=== PATIENT | male | born 1950 | race African-American/Black ===

== ENCOUNTER 2017-12-22 01:53 | Emergency (ER) | payer MEDICARE, MEDICAID ==
[~2017-12-22] VITALS: Ht 185.4 cm; Wt 83.9 kg
--- NOTE | 2017-12-22 01:53 | NUR ---
PT RECEIVED FROM [facility] FROM [facility] C/O "STAFF AT [facility] STARTED CPR D/T ALTERED/ HYPOTENSIVE". PT ARRIVED ON BIPAP W/ IO ON RLE 25G. AT BEDSIDE FOR ORDERS Addendum: 12/22/17 at 0344 by JIA CPAP NOT BIPAP
[2017-12-22] MEDS ORDERED: ROCURONIUM BROMIDE 50 MG/5 ML IV ONE ×2 (01:58)
[2017-12-22] MEDS ORDERED: CALCIUM CHLORIDE 1,000 MG/10 ML DISP.SYRIN IV ONE (01:58)
[2017-12-22] MEDS ORDERED: ETOMIDATE 2 MG/ML VIAL IV ONE (01:58)
[2017-12-22] MEDS ORDERED: EPINEPHRINE (1:10,000) SYRINGE 1 MG/10 ML DISP.SYRIN IVP ONE (01:58)
[2017-12-22] MEDS ORDERED: SODIUM BICARBONATE SYR 50 MEQ/50 ML DISP.SYRIN IV ONE (01:58)
[2017-12-22] MEDS: ETOMIDATE 2 MG/ML VIAL IV ONE (02:00)
[2017-12-22] MEDS: ROCURONIUM BROMIDE 50 MG/5 ML IV ONE (02:00)
--- NOTE | 2017-12-22 02:02 | NUR ---
PT INTUBATED PER DR LESTER, RT AT BEDSIDE ET TUBE 7.5 23 CM AT THE LIP
--- NOTE | 2017-12-22 02:04 | NUR ---
RT Pt orally intubated w/ 7.5ETT@23cm at the lip w/ bilateral bs,co2 color change, and fogging in ETT. Placed on [facility] vent settings per Dr Weller. Addendum: 12/22/17 at 0328 by FARHAN KANG RT Amended: Links added.
--- NOTE | 2017-12-22 02:05 | NUR ---
VENT SETTINGS: AC 16 VT 550 FI02 100% PEEP 0
[2017-12-22] MEDS ORDERED: PROPOFOL 100 ML ONE (02:06)
[2017-12-22 02:07] VITALS: BP 80/50
--- NOTE | 2017-12-22 02:18 | NUR ---
DR. LESTER AT BEDSIDE FOR CENTRAL LINE PLACEMENT.
--- NOTE | 2017-12-22 02:23 | NUR ---
Christianne mccloud in [facility] - 12/22/17 at 0242 by JIA STARTING CENTRAL LINE
--- NOTE | 2017-12-22 02:23 | NUR ---
CPR STARTED ON PT
--- NOTE | 2017-12-22 02:24 | NUR ---
EPI 1MG IVP 0224
--- NOTE | 2017-12-22 02:26 | NUR ---
RT AT BEDSIDE
--- NOTE | 2017-12-22 02:26 | NUR ---
ASYSTOLE. CONTINUED CPR
--- NOTE | 2017-12-22 02:27 | NUR ---
EPI 1MG GIVEN IVP LLE IO 15G
--- NOTE | 2017-12-22 02:28 | NUR ---
BS 147
[2017-12-22 02:29] LABS: BASOPHILS # (AUTO) 0.1 /CMM (0.0-0.2); BASOPHILS % (AUTO) 1.1 % (0.0-2.0); EOSINOPHILS # (AUTO) 0.1 /CMM (0.0-0.7); EOSINOPHILS % (AUTO) 1.2 % (0.0-6.0); HEMATOCRIT 35 % (39-51); HEMOGLOBIN 10.8 g/dL (13.5-17.5); LYMPHOCYTES # (AUTO) 5.9 /CMM (0.8-4.8); LYMPHOCYTES % (AUTO) 52.2 % (20.0-44.0); MEAN CORPUSCULAR HEMOGLOBIN 26 PG (26.0-33.0); MEAN CORPUSCULAR HGB CONC 31 g/dl (31.0-36.0); MEAN CORPUSCULAR VOLUME 86 fL (80-96); MONOCYTES # (AUTO) 0.7 /CMM (0.1-1.30); MONOCYTES % (AUTO) 6.6 % (2.0-12.0); NEUTROPHILS # (AUTO) 4.4 /CMM (1.8-8.9); NEUTROPHILS % (AUTO) 38.9 % (43.0-81.0); PLATELET COUNT (AUTO) 248 /CMM (150-450); RDW COEFFICIENT OF VARIATION 15.8 (11.5-15.0); RED BLOOD CELL COUNT(AUTO) 4.09 MIL/uL (4.5-6.0); WHITE BLOOD COUNT (AUTO) 11.3 K/uL (4.3-11.0)
--- NOTE | 2017-12-22 02:29 | NUR ---
NA HCO3 IVP LLE IO 15G
--- NOTE | 2017-12-22 02:32 | NUR ---
PULSE CHECK. ASYSTOLE SO CPR RESUMED
--- NOTE | 2017-12-22 02:34 | NUR ---
ASYSTOLE. CPR CONTINUED
--- NOTE | 2017-12-22 02:35 | NUR ---
CALCIUM CHLORIDE IVP LLE IO 15G
--- NOTE | 2017-12-22 02:36 | NUR ---
CPR CONTINUED AFTER PULSE CHECK
--- NOTE | 2017-12-22 02:38 | NUR ---
ASYSTOLE, CPR CONTINUED
[2017-12-22] MEDS ORDERED: EPINEPHRINE (1:1000) 1 MG/ML AMPUL ONE (02:39)
--- NOTE | 2017-12-22 02:39 | NUR ---
EPI 1MG IVP LLE IO 15G
[2017-12-22 02:40] LABS: CALCIUM, SERUM 8.5 mg/dL (8.5-10.1); CARBON DIOXIDE 12 mmol/L (21-32); CHLORIDE 109 mmol/L (98-107); CREATININE 1.7 mg/dL (0.6-1.3); GLUCOSE 214 mg/dL (74-106); POTASSIUM 4.6 mmol/L (3.5-5.1); SODIUM SERUM 145 mmol/L (136-145); UREA NITROGEN, BLOOD 16 mg/dL (7-18)
[2017-12-22] MEDS ORDERED: EPINEPHRINE (1:10,000) SYRINGE 1 MG/10 ML DISP.SYRIN ONE (02:40)
--- NOTE | 2017-12-22 02:41 | NUR ---
ASYSTOLE AFTER PULSE CHECK, CPR CONTINUED
[2017-12-22] MEDS: EPINEPHRINE (1:10,000) SYRINGE 1 MG/10 ML DISP.SYRIN IV ONE ×2 (02:42→02:45)
--- NOTE | 2017-12-22 02:42 | NUR ---
EPI 1MG IVP LLE IO 15G
--- NOTE | 2017-12-22 02:44 | NUR ---
PEA AT PULSE CHECK, CONTINUED CPR
--- NOTE | 2017-12-22 02:45 | NUR ---
NA HC03 GIVEN IVP LLE IO 15G
--- NOTE | 2017-12-22 02:45 | NUR ---
EPI 1MG IVP LLE 15G IO
[2017-12-22 02:46] LABS: ALANINE AMINOTRANSFERASE 39 U/L (12-78); ALBUMIN 2.6 g/dL (3.4-5.0); ALKALINE PHOSPHATASE 77 U/L (46-116); ASPARTATE AMINOTRANSFERASE 34 U/L (15-37); BILIRUBIN,DIRECT 0.2 mg/dL (0.0-0.2); BILIRUBIN,TOTAL 0.7 mg/dL (0.2-1.0); TOTAL PROTEIN, SERUM 7.2 g/dL (6.4-8.2)
--- NOTE | 2017-12-22 02:48 | NUR ---
PEA ON PULSE CHECK, TRANSITIONED TO ASYSTOLE
[2017-12-22 02:49] LABS: TROPONIN I 0.032 ng/mL (0.00-0.056)
--- NOTE | 2017-12-22 02:49 | NUR ---
PER DR TREVON HAMM TIME OF AT 0248 Addendum: 12/22/17 at 0309 by JIA Amendment undone in EDM - 12/22/17 at 0310 by JIA TIME IS 1649
--- NOTE | 2017-12-22 02:49 | NUR ---
ER MD LESTER CALLED TIME OF
[2017-12-22 02:58] LABS: INR 1.12 (0.87-1.13)
--- NOTE | 2017-12-22 03:09 | NUR ---
Christianne mccloud in [facility] - 12/22/17 at 0428 by JIA EPI GIVEN IVP LLE IO 15G
--- NOTE | 2017-12-22 03:15 | NUR ---
[facility] CALLED. [id number] IS REFERENCE NUMBER
--- NOTE | 2017-12-22 04:11 | NUR ---
ATTEMPTED TO CALL [facility]D CATHY RODRIGUEZ. NO PICK-UP AND REACHED PAGER. AWAITING CALL BACK
--- NOTE | 2017-12-22 04:28 | NUR ---
PER TRANSFER PAPERWORK FROM SN[facility], PATIENT SEEN BY MD RODRIGUEZ ON 12/20/17
--- NOTE | 2017-12-22 05:23 | NUR ---
[place] [facility] [place]
[2017-12-22 06:16] VITALS: BP 80/50
== END 2017-12-22 06:16 | disposition expired ==
LOC: ER 01:57
DX: I46.9 Cardiac arrest, cause unspecified (principal); E78.5 Hyperlipidemia, unspecified; F03.90 Unspecified dementia, unspecified severity, without behavioral disturbance, psychotic disturbance, mood disturbance, and anxiety; I10 Essential (primary) hypertension; I25.10 Atherosclerotic heart disease of native coronary artery without angina pectoris; I73.9 Peripheral vascular disease, unspecified; J44.9 Chronic obstructive pulmonary disease, unspecified; K21.9 Gastro-esophageal reflux disease without esophagitis; Z86.19 Personal history of other infectious and parasitic diseases
CPT/HCPCS: 31500; 36415; 36680; 80048; 80076; 82962; 83605; 84484; 85025; 85730; 92950; 93005; 94002; 99285; A4606; J0171 ×2; J3490 ×4; J7030; Z7610